=== PATIENT | female | born 1980 | race Caucasian/White ===

== ENCOUNTER 2020-11-15 14:52 | Observation (INO) | payer SELFPAY ==
[2020-11-15] MEDS ORDERED: LORazepam 2 MG/ML SDV IVPUSH ONE (16:48)
[2020-11-15] MEDS ORDERED: Iopamidol 755 MG/ML 500 ML Multipack Bottle IVPUSH STA (19:10)
--- NOTE | 2020-11-15 19:22 | CT ---
INDICATION: Perirectal abscess. COMPARISON: None available TECHNIQUE: CT examination of the abdomen and pelvis was performed with the uneventful intravenous administration of 100 cc of Omnipaque 350 while 3 mm thick axial sections were obtained from the lung bases through the pubic symphysis. Oral contrast was not administered. Please note that all CT scans at this facility use dose modulation, iterative reconstruction, and/or weight-based dosing when appropriate to reduce radiation dose to as low as reasonably achievable. FINDINGS: In the abdomen, the liver is low in density, representing fatty infiltration. There are 3 rounded areas of higher density scattered throughout the liver. The largest is in the inferior portion of the lateral segment of the left lobe, segment 3, measuring 2.2 centimeters in diameter. There is a smaller mass in the central posterior inferior medial segment of the left lobe, segment 4B, measuring 1.5 centimeters in diameter. A 9 millimeter lateral subcapsular nodule is seen in the inferior aspect of the posterior segment of the right lobe, segment 6. The appearance is nonspecific. Metastatic disease cannot be excluded. These could be hemangiomas. Further evaluation can be performed with ultrasound or dedicated CT of the liver with and without contrast to include delayed images. The spleen, pancreas and adrenals are normal in appearance. The kidneys are normal in appearance. The gallbladder is normal in appearance. The abdominal aorta is normal in caliber with no sign of dilatation. There is no sign of retroperitoneal mass or adenopathy. The stomach, loops of small bowel, and colon in the abdomen are normal in appearance. In the pelvis, the retrocecal appendix is normal in appearance with no sign of inflammatory process. The loops of small bowel and colon in the pelvis are normal in appearance. There is a lobular posterior midline perianal abscess measuring 3.8 x 3.1 in diameter and 4.9 centimeters in length. It is not associated with significant surrounding cellulitis. It does not extend into the perirectal space, with no violation of the pelvic floor. There is a simple appearing right ovarian or adnexal cyst measuring 5.0 x 3.5 x 3.3 centimeters. An additional right ovarian cyst is seen measuring 1.9 centimeters. There is a cyst in the left ovary measuring 1.9 centimeters. The uterus is normal in appearance. The urinary bladder is normal in appearance. There is no sign of pelvic or inguinal mass or adenopathy. There is no sign of free air or free fluid in the abdomen or pelvis. The lung bases are clear. There is mild scoliosis of the lumbar spine convex towards the right. There is mild L5-S1 disc degenerative disease. IMPRESSION: CT of the pelvis shows a lobular posterior midline perianal abscess measuring 3.8 x 3.1 in diameter and 4.9 centimeters in length. No sign of violation of the pelvic floor, with no sign of perirectal extension. Right ovarian or adnexal cyst measuring 5.0 x 3.5 x 3.3 centimeters. Smaller bilateral ovarian cysts. CT of the abdomen shows fatty infiltration of the liver. Three rounded areas of higher density seen scattered throughout the liver, nonspecific. Cannot exclude metastatic disease, but these could also be hemangiomas. Recommend correlation with ultrasound or dedicated CT of the liver with and without contrast to include delayed images. Please note that all CT scans at this facility use dose modulation, iterative reconstruction, and/or weight-based dosing when appropriate to reduce radiation dose to as low as reasonably achievable. Dictated by Steve Major MD @ 11/15/2020 7:20:20 PM (Electronically Signed)
--- NOTE | 2020-11-15 19:25 | EDM.PDOC ---
<Tremaine Majano - Last Filed: 11/15/20 19:25> ED HPI GENERAL MEDICAL PROBLEM - General Chief Complaint: Genitourinary Problem Stated Complaint: COUGHING Time Seen by Provider: 11/15/20 16:05 - History of Present Illness INITIAL COMMENTS - FREE TEXT/NARRATIVE: CHIEF COMPLAINT(S): Pain near her rectum HISTORY OF PRESENT ILLNESS: This is a 40-year-old woman without any reported past medical history who comes to the emergency department with a chief complaint of pain near her rectum. The patient states that for few days now she has been experiencing pain near her rectum. She states that there is an area of swelling in the area which she thinks might be a hemorrhoid. She states that initially was itching. She states that she has been using sitz bath with normal Epson salts which did help with itching however the pain has continued. She describes the pain as sharp anytime she sits rated 6 out of 10. She has not yet tried any pain medication. She denies any relieving factors. She states that she is mainly concerned because it continuing to cause her pain. She denies any pain with defecation. She states that there was some streaking of blood on the toilet paper but denies any hematochezia or melena. She denies any history of hemorrhoids or perirectal abscess. She denies any anal sex. She denies any fevers or chills. REVIEW OF SYSTEMS: Constitutional: Denies fever, chills. Eyes: Denies eye pain Ears, Nose, Mouth, & Throat: Denies earache Cardiovascular: Denies chest pain Respiratory: Denies shortness of breath Gastrointestinal: Positive for swelling near anus with pain. Denies Nausea, vomiting, diarrhea, hematochezia, melena, hematochezia, hematemesis, bilious emesis, Genitourinary: Denies hematuria Skin:Denies a rash MSK: Denies joint pain Neurological: Denies blurred vision Psychiatric: Denies depression PAST MEDICAL HISTORY: As per history of present illness and as reviewed below otherwise noncontributory. SURGICAL HISTORY: As per history of present illness and as reviewed below otherwise noncontributory. LMP: Currently on her period SOCIAL HISTORY: As per history of present illness and as reviewed below otherwise noncontributory. FAMILY HISTORY: As per history of present illness and as reviewed below otherwise noncontributory. EXAMINATION OF ORGAN SYSTEMS/BODY AREAS: Constitutional: Heart rate 130, respiratory rate 18 with an oxygen saturation of 93% on room air. Temperature 36.8. General: Anxious appearing woman who is pacing around the room. Psychiatric: Anxious appearing woman, cooperative Eyes: No scleral icterus or conjunctival erythema ENMT: Moist mucous membranes. No pharyngeal erythema Cardiovascular: Tachycardic but regular no gallops, murmurs, or rubs. Bilateral upper extremity pulses symmetric and intact. Respiratory: Lungs clear to auscultation bilaterally. No wheezes, rales, or rhonchi. Gastrointestinal: Soft, non-tender, non-distended. Normoactive bowel sounds rectal examination was performed with RN corporate communications intern in presence. There is some erythema surrounding the anus and along the noon area there is an area of fluctuance and induration which abuts the anus. There is some surrounding erythema around this. No evidence of hemorrhoids. Genitourinary: No suprapubic tenderness Musculoskeletal: Normal range of motion. Skin: As noted above. Neurological: Alert, GCS 15 MEDICAL DECISION MAKING AND COURSE IN THE ED WITH INTERPRETATION/REVIEW OF DIAGNOSTIC STUDIES: This is a 40-year-old woman without any significant past medical history who comes to the emergency department with what appears to be a possible perirectal abscess with surrounding cellulitis. The patient is tachycardic however afebrile. She is very anxious and I did recommend a pelvic CT at this time to evaluate for the depth of this abscess. She was amenable to this plan. In order for anxiolysis I did provide the patient with 2 mg of IV Ativan. At the time of signout patient's CT imaging was pending. DISPOSITION: Patient was signed out oncoming night team physician pending CT and final disposition CONDITION: Fair PROCEDURES: None FINAL IMPRESSION(S)/DIAGNOSES: 1. Acute possible perirectal abscess Tremaine Majano M.D. Bilateral Buttock Pain Score (Numeric/FACES): 6 - Related Data Allergies Allergy/AdvReac Type Severity Reaction Status Date / Time epinephrine Allergy Tachycardia Verified 11/15/20 19:30 Home Meds: Home Meds Vortioxetine Hydrobromide [Brintellix] 10 mg PO DAILY 11/15/20 [History] Past Medical History Psychiatric History: Reports: Anxiety Social & Family History - Family History Family Medical History: No Pertinent Family History - Tobacco Use Tobacco Use Status *Q: Never Tobacco User - Caffeine Use Caffeine Use: Reports: None - Recreational Drug Use Recreational Drug Use: No ED ROS GENERAL - Review of Systems Review Of Systems: See Below ED EXAM, GI/ABD - Physical Exam Exam: See Below Departure - Departure Disposition: Refer to Observation Clinical Impression: Perianal abscess - Discharge Information Instructions: Anorectal Abscess Referrals: PCP,None [Primary Care Provider] - Forms: ED Department Discharge <Oleg Franks - Last Filed: 11/15/20 21:46> Course - Vital Signs Last Recorded V/S: Last Vital Signs Temp 97.7 F 11/15/20 19:28 Pulse 125 H 11/15/20 19:28 Resp 16 11/15/20 19:28 BP 132/72 11/15/20 19:28 Pulse Ox 98 11/15/20 19:28 - Orders/Labs/Meds Orders: Active Orders 24 hr Category Date Time Status CORONAVIRUS COVID-19 PRICILLA [MOLEC] Stat Lab 11/15/20 20:53 Received CULTURE BLOOD [BC] Stat Lab 11/15/20 21:06 Received CULTURE BLOOD [BC] Stat Lab 11/15/20 21:21 Received LACTATE SEPSIS W/ REFLEX [CHEM] Stat Lab 11/15/20 21:21 Received Lactated Ringers [Ringers, Lactated] 1,000 ml Med 11/15/20 20:48 Active IV .BOLUS Blood Culture x2 Reflex Set [OM.PC] Stat Oth 11/15/20 20:52 Ordered Medication Orders Lactated Ringer's (Ringers, Lactated) 1,000 mls @ 999 mls/hr IV .BOLUS ONE Stop: 11/15/20 21:48 Last Admin: 11/15/20 20:52 Dose: 999 mls/hr Documented by: MINGO Labs: Laboratory Tests 11/15/20 11/15/20 11/15/20 Range/Units 16:45 16:45 16:45 WBC 14.45 H (4.0-11.0) K/uL RBC 5.56 (4.30-5.90) M/uL Hgb 15.2 (12.0-16.0) g/dL Hct 45.5 (36.0-46.0) % MCV 81.8 (80.0-98.0) fL MCH 27.3 (27.0-32.0) pg MCHC 33.4 (31.0-37.0) g/dL RDW Std Deviation 39.7 (28.0-62.0) fl RDW Coeff of Luci 13 (11.0-15.0) % Plt Count 271 (150-400) K/uL MPV 12.00 (7.40-12.00) fL Neut % (Auto) 67.2 (48.0-80.0) % Lymph % (Auto) 21.2 (16.0-40.0) % [place] % (Auto) 11.1 (0.0-15.0) % Eos % (Auto) 0.3 (0.0-7.0) % Baso % (Auto) 0.2 (0.0-1.5) % Neut # (Auto) 9.7 H (1.4-5.7) K/uL Lymph # (Auto) 3.1 H (0.6-2.4) K/uL [place] # (Auto) 1.6 H (0.0-0.8) K/uL Eos # (Auto) 0.1 (0.0-0.7) K/uL Baso # (Auto) 0.0 (0.0-0.1) K/uL Nucleated RBC % 0.0 /100WBC Nucleated RBCs # 0 K/uL INR 1.05 Sodium (136-145) mmol/L Potassium (3.5-5.1) mmol/L Chloride (98-107) mmol/L Carbon Dioxide (21.0-32.0) mmol/L BUN (7.0-18.0) mg/dL Creatinine (0.6-1.0) mg/dL Est Cr Clr Drug Dosing mL/min Estimated GFR (MDRD) ml/min Glucose (74-106) mg/dL Calcium (8.5-10.1) mg/dL Total Bilirubin (0.2-1.0) mg/dL AST (15-37) IU/L ALT (14-63) IU/L Alkaline Phosphatase (46-116) U/L Total Protein (6.4-8.2) g/dL Albumin (3.4-5.0) g/dL Globulin (2.6-4.0) g/dL Albumin/Globulin Ratio (0.9-1.6) Urine HCG, Qual NEGATIVE (NEGATIVE) 11/15/20 Range/Units 16:45 WBC (4.0-11.0) K/uL RBC (4.30-5.90) M/uL Hgb (12.0-16.0) g/dL Hct (36.0-46.0) % MCV (80.0-98.0) fL MCH (27.0-32.0) pg MCHC (31.0-37.0) g/dL RDW Std Deviation (28.0-62.0) fl RDW Coeff of Luci (11.0-15.0) % Plt Count (150-400) K/uL MPV (7.40-12.00) fL Neut % (Auto) (48.0-80.0) % Lymph % (Auto) (16.0-40.0) % [place] % (Auto) (0.0-15.0) % Eos % (Auto) (0.0-7.0) % Baso % (Auto) (0.0-1.5) % Neut # (Auto) (1.4-5.7) K/uL Lymph # (Auto) (0.6-2.4) K/uL [place] # (Auto) (0.0-0.8) K/uL Eos # (Auto) (0.0-0.7) K/uL Baso # (Auto) (0.0-0.1) K/uL Nucleated RBC % /100WBC Nucleated RBCs # K/uL INR Sodium 134 L (136-145) mmol/L Potassium 3.6 (3.5-5.1) mmol/L Chloride 98 (98-107) mmol/L Carbon Dioxide 26.1 (21.0-32.0) mmol/L BUN 9 (7.0-18.0) mg/dL Creatinine 0.9 (0.6-1.0) mg/dL Est Cr Clr Drug Dosing 82.42 mL/min Estimated GFR (MDRD) > 60.0 ml/min Glucose 328 H (74-106) mg/dL Calcium 10.3 H (8.5-10.1) mg/dL Total Bilirubin 0.6 (0.2-1.0) mg/dL AST 34 (15-37) IU/L ALT 71 H (14-63) IU/L Alkaline Phosphatase 118 H (46-116) U/L Total Protein 8.0 (6.4-8.2) g/dL Albumin 3.8 (3.4-5.0) g/dL Globulin 4.2 H (2.6-4.0) g/dL Albumin/Globulin Ratio 0.9 (0.9-1.6) Urine HCG, Qual (NEGATIVE) Meds: Medications Generic Name Dose Route Start Last Admin Trade Name Freq PRN Reason Stop Dose Admin Lactated Ringer's 1,000 mls @ 999 mls/hr 11/15/20 20:48 11/15/20 20:52 Ringers, Lactated IV 11/15/20 21:48 999 mls/hr .BOLUS ONE Administration Discontinued Medications Generic Name Dose Route Start Last Admin Trade Name Freq PRN Reason Stop Dose Admin Iopamidol 100 ml 11/15/20 19:10 11/15/20 19:11 Iopamidol 755 Mg/Ml 500 Ml Multipack Bottle IVPUSH 11/15/20 19:11 100 ml ONETIME STA Administration Lorazepam 2 mg 11/15/20 16:48 11/15/20 17:05 Lorazepam 2 Mg/Ml Sdv IVPUSH 11/15/20 16:49 2 mg ONETIME ONE Administration - Re-Assessments/Exams Free Text/Narrative Re-Assessment/Exam: 11/15/20 20:[address] Aldana, will assess patient at bedside, wants blood work and Covid sent. 11/15/20 21:46 Dr. Aldana assessed patient at bedside, will take patient to the OR for I&D. He wants patient admitted as observation postoperatively. Departure - Departure Time of Disposition: 21:45 Condition: Good - Discharge Information *PRESCRIPTION DRUG MONITORING PROGRAM REVIEWED*: Not Applicable *COPY OF PRESCRIPTION DRUG MONITORING REPORT IN PATIENT FANG: Not Applicable Sepsis Event Note (ED) - Focused Exam Vital Signs: Vital Signs Temp Pulse Resp BP Pulse Ox 11/15/20 19:28 97.7 F 125 H 16 132/72 98 11/15/20 19:03 99.7 F 124 H 16 138/73 97 11/15/20 18:40 119 H 142/83 H 11/15/20 17:38 98.4 F 127 H 16 117/78 96 11/15/20 15:19 98.3 F 130 H 18 125/81 93 L - My Orders Last 24 Hours: My Active Orders 11/15/20 20:48 Lactated Ringers [Ringers, Lactated] 1,000 ml IV .BOLUS 11/15/20 20:52 Blood Culture x2 Reflex Set [OM.PC] Stat 11/15/20 20:53 CORONAVIRUS COVID-19 PRICILLA [MOLEC] Stat 11/15/20 21:06 CULTURE BLOOD [BC] Stat 11/15/20 21:21 CULTURE BLOOD [BC] Stat LACTATE SEPSIS W/ REFLEX [CHEM] Stat - Assessment/Plan Last 24 Hours: My Active Orders 11/15/20 20:48 Lactated Ringers [Ringers, Lactated] 1,000 ml IV .BOLUS 11/15/20 20:52 Blood Culture x2 Reflex Set [OM.PC] Stat 11/15/20 20:53 CORONAVIRUS COVID-19 PRICILLA [MOLEC] Stat 11/15/20 21:06 CULTURE BLOOD [BC] Stat 11/15/20 21:21 CULTURE BLOOD [BC] Stat LACTATE SEPSIS W/ REFLEX [CHEM] Stat
[2020-11-15] MEDS ORDERED: Lactated Ringers 1,000 ML IV ONE (20:48)
[2020-11-15 21:08] LABS: BLOOD UREA NITROGEN,BUN 9 mg/dL (7.0-18.0); CARBON DIOXIDE,CO2 26.1 mmol/L (21.0-32.0); CHLORIDE,CL 98 mmol/L (98-107); GLUCOSE RANDOM 328 mg/dL (74-106); POTASSIUM,K 3.6 mmol/L (3.5-5.1); SODIUM,NA 134 mmol/L (136-145)
[2020-11-15] MEDS ORDERED: cefOXitin 2 GM in Premix Bag 1 BAG IV ONE (21:54)
[2020-11-15] MEDS ORDERED: Lactated Ringers 1,000 ML IV SCH ×2 (22:00→23:45)
--- NOTE | 2020-11-15 22:03 | PCM.CONS ---
H&P History of Present Illness - General Date of Service: 11/15/20 Admit Problem/Dx: Perianal abscess Source of Information: Patient History Limitations: Reports: No Limitations - History of Present Illness Initial Comments - Free Text/Narative: Patient is a 40-year-old female who presented the emergency room mid afternoon today with a three-day history of progressive perianal discomfort. Initially sh e thought this was a hemorrhoid. It did not resolve. She was also having her menses did not want to come in until after it stopped. Unfortunately, the pain got worse and she developed a fever, so she sought medical attention. She has been worked up in the emergency room and found have a leukocytosis. CT scan of the pelvis also shows a perianal abscess. Symptom Onset Date: 11/12/20 Duration of Symptoms: Reports: Day(s): Location: Reports: Other (Perineum) Quality: Reports: Pressure Severity: Moderate Improves with: Reports: Rest Worsens with: Reports: Movement Context: Reports: Sick Contact Associated Symptoms: Reports: Fever/Chills (No chills) Bilateral Buttock Pain Score (Numeric/FACES): 6 - Related Data Allergies/Adverse Reactions: Allergies Allergy/AdvReac Type Severity Reaction Status Date / Time epinephrine Allergy Tachycardia Verified 11/15/20 19:30 Home Medications: Home Meds Vortioxetine Hydrobromide [Brintellix] 10 mg PO DAILY 11/15/20 [History] Past Medical History Psychiatric History: Reports: Anxiety Social & Family History - Family History Family Medical History: No Pertinent Family History - Tobacco Use Tobacco Use Status *Q: Never Tobacco User - Caffeine Use Caffeine Use: Reports: None - Recreational Drug Use Recreational Drug Use: No H&P Review of Systems - Review of Systems: Review Of Systems: See Below General: Reports: Fever. Denies: Chills, Malaise, Weakness, Fatigue HEENT: Reports: No Symptoms Pulmonary: Denies: Shortness of Breath, Wheezing Cardiovascular: Denies: Chest Pain, Palpitations Gastrointestinal: Denies: Abdominal Pain, Anorexia, Black Stool, Bloody Stool, Diarrhea, Nausea, Vomiting Genitourinary: Denies: Dysuria, Frequency, Burning, Pain, Urgency, Abnormal M enses Musculoskeletal: Reports: No Symptoms Skin: Denies: Cyanosis, Jaundice, Mottled, Pallor Psychiatric: Reports: Anxiety. Denies: Confusion, Depression, Agitation Neurological: Reports: No Symptoms Hematologic/Lymphatic: Reports: No Symptoms Immunologic: Reports: No Symptoms Exam - Exam Exam: See Below - Vital Signs Vital Signs: Last Vital Signs Temp 97.7 F 11/15/20 19:28 Pulse 125 H 11/15/20 19:28 Resp 16 11/15/20 19:28 BP 132/72 11/15/20 19:28 Pulse Ox 98 11/15/20 19:28 Weight: 170 lb - Exam Quality Assessment: No: Supplemental Oxygen, Central Line/PICC, Urinary Catheter General: Alert, Oriented, Cooperative, Moderate Distress HEENT: Conjunctiva Clear, Nares Patent, Pupils Equal, Pupils Reactive. No: Scleral Icterus Neck: Supple, Trachea Midline Lungs: Clear to Auscultation, Normal Respiratory Effort. No: Wheezing Cardiovascular: Regular Rate, Regular Rhythm, Normal S1, Normal S2, Tachycardia GI/Abdominal Exam: Normal Bowel Sounds, Soft, Non-Tender (Female) Exam: Normal External Exam Rectal (Female) Exam: Deferred, Other (Posterior perianal abscess) Back Exam: Normal Inspection, Full Range of Motion Extremities: Normal Inspection, Normal Range of Motion, Normal Capillary Refill Peripheral Pulses: 4+: Posterior Tibial (L), Posterior Tibial (R), Dorsalis Pedis (L), Dorsalis Pedis (R) Skin: Warm, Dry, Intact Neurological: Cranial Nerves Intact Neuro Extensive - Mental Status: Alert, Oriented x3, Normal Mood/Affect, Normal Cognition Psychiatric: Alert, Normal Affect, Normal Mood - Patient Data Lab Results Last 24 hrs: Laboratory Results - last 24 hr 11/15/20 11/15/20 11/15/20 Range/Units 16:45 16:45 16:45 WBC 14.45 H (4.0-11.0) K/uL RBC 5.56 (4.30-5.90) M/uL Hgb 15.2 (12.0-16.0) g/dL Hct 45.5 (36.0-46.0) % MCV 81.8 (80.0-98.0) fL MCH 27.3 (27.0-32.0) pg MCHC 33.4 (31.0-37.0) g/dL RDW Std Deviation 39.7 (28.0-62.0) fl RDW Coeff of Luci 13 (11.0-15.0) % Plt Count 271 (150-400) K/uL MPV 12.00 (7.40-12.00) fL Neut % (Auto) 67.2 (48.0-80.0) % Lymph % (Auto) 21.2 (16.0-40.0) % [place] % (Auto) 11.1 (0.0-15.0) % Eos % (Auto) 0.3 (0.0-7.0) % Baso % (Auto) 0.2 (0.0-1.5) % Neut # (Auto) 9.7 H (1.4-5.7) K/uL Lymph # (Auto) 3.1 H (0.6-2.4) K/uL [place] # (Auto) 1.6 H (0.0-0.8) K/uL Eos # (Auto) 0.1 (0.0-0.7) K/uL Baso # (Auto) 0.0 (0.0-0.1) K/uL Nucleated RBC % 0.0 /100WBC Nucleated RBCs # 0 K/uL INR 1.05 Sodium (136-145) mmol/L Potassium (3.5-5.1) mmol/L Chloride (98-107) mmol/L Carbon Dioxide (21.0-32.0) mmol/L BUN (7.0-18.0) mg/dL Creatinine (0.6-1.0) mg/dL Est Cr Clr Drug Dosing mL/min Estimated GFR (MDRD) ml/min Glucose (74-106) mg/dL Lactic Acid (0.4-2.0) mmol/L Calcium (8.5-10.1) mg/dL Total Bilirubin (0.2-1.0) mg/dL AST (15-37) IU/L ALT (14-63) IU/L Alkaline Phosphatase (46-116) U/L Total Protein (6.4-8.2) g/dL Albumin (3.4-5.0) g/dL Globulin (2.6-4.0) g/dL Albumin/Globulin Ratio (0.9-1.6) Urine HCG, Qual NEGATIVE (NEGATIVE) 11/15/20 11/15/20 Range/Units 16:45 21:21 WBC (4.0-11.0) K/uL RBC (4.30-5.90) M/uL Hgb (12.0-16.0) g/dL Hct (36.0-46.0) % MCV (80.0-98.0) fL MCH (27.0-32.0) pg MCHC (31.0-37.0) g/dL RDW Std Deviation (28.0-62.0) fl RDW Coeff of Luci (11.0-15.0) % Plt Count (150-400) K/uL MPV (7.40-12.00) fL Neut % (Auto) (48.0-80.0) % Lymph % (Auto) (16.0-40.0) % [place] % (Auto) (0.0-15.0) % Eos % (Auto) (0.0-7.0) % Baso % (Auto) (0.0-1.5) % Neut # (Auto) (1.4-5.7) K/uL Lymph # (Auto) (0.6-2.4) K/uL [place] # (Auto) (0.0-0.8) K/uL Eos # (Auto) (0.0-0.7) K/uL Baso # (Auto) (0.0-0.1) K/uL Nucleated RBC % /100WBC Nucleated RBCs # K/uL INR Sodium 134 L (136-145) mmol/L Potassium 3.6 (3.5-5.1) mmol/L Chloride 98 (98-107) mmol/L Carbon Dioxide 26.1 (21.0-32.0) mmol/L BUN 9 (7.0-18.0) mg/dL Creatinine 0.9 (0.6-1.0) mg/dL Est Cr Clr Drug Dosing 82.42 mL/min Estimated GFR (MDRD) > 60.0 ml/min Glucose 328 H (74-106) mg/dL Lactic Acid 0.9 (0.4-2.0) mmol/L Calcium 10.3 H (8.5-10.1) mg/dL Total Bilirubin 0.6 (0.2-1.0) mg/dL AST 34 (15-37) IU/L ALT 71 H (14-63) IU/L Alkaline Phosphatase 118 H (46-116) U/L Total Protein 8.0 (6.4-8.2) g/dL Albumin 3.8 (3.4-5.0) g/dL Globulin 4.2 H (2.6-4.0) g/dL Albumin/Globulin Ratio 0.9 (0.9-1.6) Urine HCG, Qual (NEGATIVE) Result Diagrams: 11/15/20 16:45 11/15/20 16:45 Sepsis Event Note - Focused Exam Vital Signs: Vital Signs Temp Pulse Resp BP Pulse Ox 11/15/20 19:28 97.7 F 125 H 16 132/72 98 11/15/20 19:03 99.7 F 124 H 16 138/73 97 11/15/20 18:40 119 H 142/83 H 11/15/20 17:38 98.4 F 127 H 16 117/78 96 11/15/20 15:19 98.3 F 130 H 18 125/81 93 L Consult PN Assessment/Plan (1) Perianal abscess SNOMED Code(s): 32800274 Code(s): K61.0 - ANAL ABSCESS Priority: High Current Visit: Yes Problem List Initiated/Reviewed/Updated: Yes My Orders Last 24 Hours: My Active Orders 11/15/20 Dinner Nothing Per Oral Diet [DIET] 11/15/20 21:54 cefOXitin [Mefoxin in Dextrose,Iso-Osm 2 GM/50 ML] 2 gm Premix Bag 1 bag IV ONETIME Resuscitation Status Routine 11/15/20 21:55 Antiembolic Devices [RC] PER UNIT ROUTINE Oxygen Therapy [RC] PRN Pulse Oximetry [RC] INTERMITTENT Skin Preparation [RC] ASDIRECTED Vital Signs [RC] PER UNIT ROUTINE Sequential Compression Device [OM.PC] Routine 11/15/20 21:56 Antiembolic Devices [RC] PER UNIT ROUTINE 11/15/20 22:00 Lactated Ringers @ 125 MLS/HR(1,000ml) Lactated Ringers [Ringers, Lactated] 1,000 ml IV ASDIRECTED Plan: Incision and drainage of perianal abscess. The operative procedure, the risks, including, but not limited to, bleeding, infection, and recurrence of the abscess been reviewed with the patient who voices understanding, offers no questions and wishes to proceed.
[2020-11-15] MEDS ORDERED: Famotidine 20 MG/2 ML SDV ONE (22:38)
[2020-11-15] MEDS ORDERED: Propofol 200 MG/20 ML SDV ONE (23:07)
[2020-11-15] MEDS ORDERED: fentaNYL 250 MCG/5 ML SDV ONE (23:07)
[2020-11-15] MEDS ORDERED: Dexamethasone 4 MG/ML 5 ML MDV ONE (23:08)
[2020-11-15] MEDS ORDERED: Glycopyrrolate 0.2 MG/ML SDV ONE (23:08)
[2020-11-15] MEDS ORDERED: Lidocaine 2% Jelly 30 ML Tube ONE (23:08)
[2020-11-15] MEDS ORDERED: Rocuronium Bromide 50 MG/5 ML Syringe ONE (23:08)
[2020-11-15] MEDS ORDERED: Ondansetron 4 MG/2 ML SDV ONE (23:08)
[2020-11-15] MEDS ORDERED: ceFAZolin 1 GM Vial ONE (23:12)
[2020-11-15] MEDS ORDERED: fentaNYL 100 MCG/2 ML SDV ONE (23:12)
[2020-11-15] MEDS ORDERED: Sugammadex Sodium 200 MG/2 ML VIAL ONE (23:21)
[2020-11-15] MEDS ORDERED: Morphine 4 MG/ML Syringe IVPUSH PRN (23:39)
[2020-11-15] MEDS ORDERED: Ondansetron 4 MG/2 ML SDV IVPUSH PRN (23:39)
[2020-11-15] MEDS ORDERED: Acetaminophen 325 MG Tab PO PRN (23:39)
--- NOTE | 2020-11-15 23:50 | PCM.PREANE ---
Preanesthetic Assessment - Procedure Proposed Procedure: i and d of perirectal abcess - Anesthesia/Transfusion/Family Hx Anesthesia History: No Prior Anesthesia Family History of Anesthesia Reaction: No Transfusion History: No Prior Transfusion(s) - Review of Systems General: Fever Pulmonary: No Symptoms Cardiovascular: No Symptoms Gastrointestinal: No Symptoms Neurological: No Symptoms Other: Reports: None - Physical Assessment NPO Status Date: 11/15/20 NPO Status Time: 14:00 Vital Signs: Last Vital Signs Temp 36.5 C 11/15/20 19:28 Pulse 130 H 11/15/20 22:48 Resp 16 11/15/20 22:48 BP 122/70 11/15/20 22:48 Pulse Ox 98 11/15/20 22:48 Height: 1.7 m Weight: 77.111 kg ASA Class: 2E Mental Status: Alert & Oriented x3 Airway Class: Mallampati = 2 Dentition: Reports: Normal Dentition Thyro-Mental Finger Breadths: 3 Mouth Opening Finger Breadths: 3 ROM/Head Extension: Full Lungs: Clear to Auscultation Cardiovascular: Regular Rate - Lab Values: Laboratory Last Values WBC 14.45 K/uL (4.0-11.0) H 11/15/20 16:45 RBC 5.56 M/uL (4.30-5.90) 11/15/20 16:45 Hgb 15.2 g/dL (12.0-16.0) 11/15/20 16:45 Hct 45.5 % (36.0-46.0) 11/15/20 16:45 MCV 81.8 fL (80.0-98.0) 11/15/20 16:45 MCH 27.3 pg (27.0-32.0) 11/15/20 16:45 MCHC 33.4 g/dL (31.0-37.0) 11/15/20 16:45 RDW Std Deviation 39.7 fl (28.0-62.0) 11/15/20 16:45 RDW Coeff of Luci 13 % (11.0-15.0) 11/15/20 16:45 Plt Count 271 K/uL (150-400) 11/15/20 16:45 MPV 12.00 fL (7.40-12.00) 11/15/20 16:45 Neut % (Auto) 67.2 % (48.0-80.0) 11/15/20 16:45 Lymph % (Auto) 21.2 % (16.0-40.0) 11/15/20 16:45 [place] % (Auto) 11.1 % (0.0-15.0) 11/15/20 16:45 Eos % (Auto) 0.3 % (0.0-7.0) 11/15/20 16:45 Baso % (Auto) 0.2 % (0.0-1.5) 11/15/20 16:45 Neut # (Auto) 9.7 K/uL (1.4-5.7) H 11/15/20 16:45 Lymph # (Auto) 3.1 K/uL (0.6-2.4) H 11/15/20 16:45 [place] # (Auto) 1.6 K/uL (0.0-0.8) H 11/15/20 16:45 Eos # (Auto) 0.1 K/uL (0.0-0.7) 11/15/20 16:45 Baso # (Auto) 0.0 K/uL (0.0-0.1) 11/15/20 16:45 Nucleated RBC % 0.0 /100WBC 11/15/20 16:45 Nucleated RBCs # 0 K/uL 11/15/20 16:45 INR 1.05 11/15/20 16:45 Sodium 134 mmol/L (136-145) L 11/15/20 16:45 Potassium 3.6 mmol/L (3.5-5.1) 11/15/20 16:45 Chloride 98 mmol/L (98-107) 11/15/20 16:45 Carbon Dioxide 26.1 mmol/L (21.0-32.0) 11/15/20 16:45 BUN 9 mg/dL (7.0-18.0) 11/15/20 16:45 Creatinine 0.9 mg/dL (0.6-1.0) 11/15/20 16:45 Est Cr Clr Drug Dosing 82.42 mL/min 11/15/20 16:45 Estimated GFR (MDRD) > 60.0 ml/min 11/15/20 16:45 Glucose 328 mg/dL (74-106) H 11/15/20 16:45 Lactic Acid 0.9 mmol/L (0.4-2.0) 11/15/20 21:21 Calcium 10.3 mg/dL (8.5-10.1) H 11/15/20 16:45 Total Bilirubin 0.6 mg/dL (0.2-1.0) 11/15/20 16:45 AST 34 IU/L (15-37) 11/15/20 16:45 ALT 71 IU/L (14-63) H 11/15/20 16:45 Alkaline Phosphatase 118 U/L (46-116) H 11/15/20 16:45 Total Protein 8.0 g/dL (6.4-8.2) 11/15/20 16:45 Albumin 3.8 g/dL (3.4-5.0) 11/15/20 16:45 Globulin 4.2 g/dL (2.6-4.0) H 11/15/20 16:45 Albumin/Globulin Ratio 0.9 (0.9-1.6) 11/15/20 16:45 Urine HCG, Qual NEGATIVE (NEGATIVE) 11/15/20 16:45 SARS-CoV-2 RNA (PRICILLA) NEGATIVE (NEGATIVE) 11/15/20 20:53 - Allergies Allergies/Adverse Reactions: Allergies Allergy/AdvReac Type Severity Reaction Status Date / Time epinephrine Allergy Tachycardia Verified 11/15/20 19:30 - Blood Blood Available: No Product(s) Available: None - Anesthesia Plan Pre-Op Medication Ordered: Antacids - Acknowledgements Anesthesia Type Planned: General Anesthesia Pt an Appropriate Candidate for the Planned Anesthesia: Yes Alternatives and Risks of Anesthesia Discussed w Pt/Guardian: Yes Pt/Guardian Understands and Agrees with Anesthesia Plan: Yes PreAnesthesia Questionnaire Psychiatric History: Reports: Anxiety - SUBSTANCE USE Tobacco Use Status *Q: Never Tobacco User Recreational Drug Use History: No - HOME MEDS Home Medications: Home Meds Vortioxetine Hydrobromide [Brintellix] 10 mg PO DAILY 11/15/20 [History] - CURRENT (IN HOUSE) MEDS Current Meds: Current Medications Acetaminophen (Acetaminophen 325 Mg Tab) 325 mg PO Q4H PRN PRN Reason: Fever Greater Than 101 Lactated Ringer's (Ringers, Lactated) 1,000 mls @ 125 mls/hr IV ASDIRECTED [facility] Lactated Ringer's (Ringers, Lactated) 1,000 mls @ 125 mls/hr IV ASDIRECTED [facility] Cefoxitin Sodium 1 gm/ Premix 50 mls @ 100 mls/hr IV Q6H [facility] Stop: 11/16/20 10:29 Morphine Sulfate (Morphine 4 Mg/Ml Syringe) 0 mg IVPUSH Q1H PRN PRN Reason: Pain (severe 7-10) Ondansetron HCl (Ondansetron 4 Mg/2 Ml Sdv) 4 mg IVPUSH Q6H PRN PRN Reason: Nausea/Vomiting Tramadol HCl (Tramadol 50 Mg Tab) 50 mg PO Q6H PRN PRN Reason: Pain (moderate 4-6) Discontinued Medications Cefazolin Sodium (Cefazolin 1 Gm Vial) Confirm Administered Dose 1 gm .ROUTE .STK-MED ONE Stop: 11/15/20 23:13 Dexamethasone (Dexamethasone 4 Mg/Ml 5 Ml Mdv) Confirm Administered Dose 20 mg .ROUTE .STK-MED ONE Stop: 11/15/20 23:09 Famotidine (Famotidine 20 Mg/2 Ml Sdv) Confirm Administered Dose 20 mg .ROUTE .STK-MED ONE Stop: 11/15/20 22:39 Fentanyl (Fentanyl 250 Mcg/5 Ml Sdv) Confirm Administered Dose 250 mcg .ROUTE .STK-MED ONE Stop: 11/15/20 23:08 Fentanyl (Fentanyl 100 Mcg/2 Ml Sdv) Confirm Administered Dose 100 mcg .ROUTE .STK-MED ONE Stop: 11/15/20 23:13 Glycopyrrolate (Glycopyrrolate 0.2 Mg/Ml Sdv) Confirm Administered Dose 0.4 mg .ROUTE .STK-MED ONE Stop: 11/15/20 23:09 Lactated Ringer's (Ringers, Lactated) 1,000 mls @ 999 mls/hr IV .BOLUS ONE Stop: 11/15/20 21:48 Last Admin: 11/15/20 20:52 Dose: 999 mls/hr Documented by: Cefoxitin Sodium 2 gm/ Premix 50 mls @ 100 mls/hr IV ONETIME ONE Stop: 11/15/20 22:23 Last Admin: 11/15/20 22:06 Dose: 100 mls/hr Documented by: Acetaminophen (Ofirmev 1000 Mg/100 Ml) Confirm Administered Dose 100 mls @ as directed .ROUTE .STK-MED ONE Stop: 11/15/20 23:09 Iopamidol (Iopamidol 755 Mg/Ml 500 Ml Multipack Bottle) 100 ml IVPUSH ONETIME STA Stop: 11/15/20 19:11 Last Admin: 11/15/20 19:11 Dose: 100 ml Documented by: Lidocaine HCl (Lidocaine 2% Jelly 30 Ml Tube) Confirm Administered Dose 30 ml .ROUTE .STK-MED ONE Stop: 11/15/20 23:09 Lorazepam (Lorazepam 2 Mg/Ml Sdv) 2 mg IVPUSH ONETIME ONE Stop: 11/15/20 16:49 Last Admin: 11/15/20 17:05 Dose: 2 mg Documented by: Ondansetron HCl (Ondansetron 4 Mg/2 Ml Sdv) Confirm Administered Dose 4 mg .ROUTE .STK-MED ONE Stop: 11/15/20 23:09 Propofol (Propofol 200 Mg/20 Ml Sdv) Confirm Administered Dose 200 mg .ROUTE .STK-MED ONE Stop: 11/15/20 23:08 Rocuronium [place] (Rocuronium [place] 50 Mg/5 Ml Syringe) Confirm Administered Dose 50 mg .ROUTE .STK-MED ONE Stop: 11/15/20 23:09 Sugammadex Sodium (Sugammadex Sodium 200 Mg/2 Ml Vial) Confirm Administered Dose 200 mg .ROUTE .STK-MED ONE Stop: 11/15/20 23:22
--- NOTE | 2020-11-15 23:53 | PCM.POSTAN ---
POST ANESTHESIA ASSESSMENT - MENTAL STATUS Mental Status: Alert - VITAL SIGNS Vital Signs: Last Vital Signs Temp 36.5 C 11/15/20 19:28 Pulse 130 H 11/15/20 22:48 Resp 16 11/15/20 22:48 BP 122/70 11/15/20 22:48 Pulse Ox 98 11/15/20 22:48 - RESPIRATORY Respiratory Status: Respiratory Rate WNL - CARDIOVASCULAR CV Status: Blood Pressure Stable, Elevated Pulse Rate, Other Free Text/Narrative:: Dr. barrera at bedside and agrees to address mild tachcardia with additional LR. - GASTROINTESTINAL GI Status: No Symptoms - PAIN Pain Score: 0 - POST OP HYDRATION Hydration Status: Hypovolemic Free Text/Narrative:: will give additional 1L LR in pacu
--- NOTE | 2020-11-15 23:54 | PCM48HPAN ---
Post Anesthesia Note - EVALUATION WITHIN 48HRS OF ANESTHETIC Vital Signs in Normal Range: Yes (additional 1L LR to infuse to increase blood volume and attenuate mild tach) Patient Participated in Evaluation: Yes Respiratory Function Stable: Yes Airway Patent: Yes Cardiovascular Function Stable: Yes Hydration Status Stable: Yes Pain Control Satisfactory: Yes Nausea and Vomiting Control Satisfactory: Yes Mental Status Recovered: Yes Vital Signs: Last Vital Signs Temp 36.5 C 11/15/20 19:28 Pulse 130 H 11/15/20 22:48 Resp 16 11/15/20 22:48 BP 122/70 11/15/20 22:48 Pulse Ox 98 11/15/20 22:48
[2020-11-16] MEDS: traMADol 50 MG Tab PO PRN ×2 (00:58→08:34)
--- NOTE | 2020-11-16 03:01 | OR ---
SURGEON: Rafael Aldana M.D. DATE OF PROCEDURE: 11/15/2020 OPERATION PERFORMED: Incision and drainage of perianal abscess. PRIMARY SURGEON: Rafael Aldana M.D. [employer]: Supervisor [employer]: Taylor Arana, nurse practitioner student. ANESTHESIA: General endotracheal. ASA CLASSIFICATION: IIE. PREOPERATIVE DIAGNOSIS: Perianal abscess. POSTOPERATIVE DIAGNOSIS: Perianal abscess. ESTIMATED BLOOD LOSS: 30 mL. FLUID REPLACEMENT: 2000 mL of crystalloid. DESCRIPTION OF PROCEDURE: The patient was taken to the operating room and placed on the operating table in the supine position. A time-out was called for appropriate identification of patient and procedure. Following satisfactory attainment of general endotracheal anesthesia, the patient was placed in the lithotomy position in the [facility] stirrups. The perineum and surgical site were prepped with Betadine solution. Sterile drapes were applied. The abscess itself was aspirated of approximately 10 mL of purulent material, and that was sent to the laboratory for Gram stain, culture and sensitivity, both aerobically and anaerobically. Following that, a skin incision was made directly over the abscess cavity, making the incision approximately 1-1/2 inches long. There was immediate return of again gross foul-smelling purulent material. Digital examination of the abscess cavity was completed to break up all loculations. With that accomplished, the abscess cavity was irrigated with approximately 800 mL of saline with 1 g of Ancef. All fluid was aspirated. Following that, a 3/4 inch Janet drain was brought to the operating table and placed in an accordion fashion into the abscess cavity. This was secured to the skin with 2-0 nylon. No significant bleeding was noted. With that accomplished, the wound was dressed with fluffs and ABD and mesh panties. The patient tolerated the procedure well. Following emergence from anesthesia and extubation, she was taken to recovery room in stable condition. ROBERT / DELONTE /[id number]
[2020-11-16] MEDS: cefOXitin 1 GM in Premix Bag 1 BAG IV SCH ×2 (05:00→09:21)
== END 2020-11-16 10:15 | disposition home or self-care (01) ==
LOC: MW.ED 14:52 → UNDOADMOB 21:54 → MW.MS 21:54
PROVIDERS: ADMIT Surgery; ATTEND Surgery
DX: K61.0 Anal abscess (principal); D72.829 Elevated white blood cell count, unspecified; Z88.8 Allergy status to other drugs, medicaments and biological substances; Z79.899 Other long term (current) drug therapy; Z01.812 Encounter for preprocedural laboratory examination; Z20.822 Contact with and (suspected) exposure to COVID-19
CPT/HCPCS: 36415; 46050; 72193; 80053; 81025; 83605; 85025; 85610; 87040; 87070; 87075; 87205; 87635; 96365; 96375; 96376; 99284; A9270; G0378; J0131; J0690; J0694; J1100; J2060; J2704; J3010; J3490; J7120; Q9967; 00902; J2405; U0002